=== PATIENT | male | born 1955 | race Caucasian/White ===

== ENCOUNTER 2016-10-17 10:26 | Outpatient (CLI) | payer BC | END 2016-10-17 10:36 | LOC: LAB 10:26 | PROVIDERS: ATTEND Family Medicine | DX: E11.42 Type 2 diabetes mellitus with diabetic polyneuropathy (principal) | CPT/HCPCS: 36415; 82043; 83036 ==

== ENCOUNTER 2017-02-26 07:54 | Outpatient (CLI) | payer BC ==
[2017-02-26 08:40] LABS: eGFR (African) > 60; eGFR (Non-African) 59
== END 2017-02-26 07:55 ==
LOC: LAB 07:54
PROVIDERS: ATTEND Family Medicine
DX: E11.42 Type 2 diabetes mellitus with diabetic polyneuropathy (principal)
CPT/HCPCS: 80053; 80061; 82043; 83036

== ENCOUNTER 2017-06-05 08:42 | Outpatient (CLI) | payer BC | END 2017-06-05 08:43 | LOC: LAB 08:42 | PROVIDERS: ATTEND Family Medicine | DX: E11.9 Type 2 diabetes mellitus without complications (principal); Z79.4 Long term (current) use of insulin | CPT/HCPCS: 36415; 83036 ==

== ENCOUNTER 2017-09-04 08:54 | Outpatient (CLI) | payer BC | END 2017-09-04 10:39 | LOC: LAB 08:54 | PROVIDERS: ATTEND Family Medicine | DX: E11.42 Type 2 diabetes mellitus with diabetic polyneuropathy (principal) | CPT/HCPCS: 36415; 83036 ==

== ENCOUNTER 2017-12-25 08:48 | Outpatient (CLI) | payer BC | END 2017-12-25 08:50 | LOC: LAB 08:48 | PROVIDERS: ATTEND Family Medicine | DX: E11.9 Type 2 diabetes mellitus without complications (principal); Z79.4 Long term (current) use of insulin | CPT/HCPCS: 36415; 83036 ==

== ENCOUNTER 2018-05-29 09:19 | Outpatient (CLI) | payer MEDICARE, OTHER ==
[2018-05-29 10:15] LABS: eGFR (Non-African) 40
== END 2018-05-29 09:20 ==
LOC: LAB 09:19
PROVIDERS: ATTEND Family Medicine
DX: E11.9 Type 2 diabetes mellitus without complications (principal)
CPT/HCPCS: 36415; 80053; 80061; 83036

== ENCOUNTER 2018-12-04 14:31 | Outpatient (CLI) | payer MEDICARE, OTHER | END 2018-12-04 14:33 | LOC: LAB 14:31 | PROVIDERS: ATTEND Family Medicine | DX: E11.9 Type 2 diabetes mellitus without complications (principal); Z79.4 Long term (current) use of insulin | CPT/HCPCS: 36415; 82043; 83036 ==

== ENCOUNTER 2019-06-03 10:34 | Outpatient (CLI) | payer MEDICARE, OTHER | END 2019-06-03 10:36 | LOC: LAB 10:34 | PROVIDERS: ATTEND Family Medicine | DX: E11.42 Type 2 diabetes mellitus with diabetic polyneuropathy (principal) | CPT/HCPCS: 36415; 83036 ==